=== PATIENT | female | born 1990 | race Caucasian/White ===

== ENCOUNTER → 2020-05-13 09:30 | Outpatient (BNVA) | payer BC, SELFPAY | PROVIDERS: Visit Provider Specialist | DX: G40.909 Epilepsy, unspecified, not intractable, without status epilepticus (principal); Z79.52 Long term (current) use of systemic steroids | CPT/HCPCS: 95816 ==

== ENCOUNTER → 2020-05-20 11:27 | Outpatient (BNVA) | payer BC, SELFPAY | PROVIDERS: PCP Family Medicine; Visit Provider Specialist | DX: R56.9 Unspecified convulsions (principal); F41.8 Other specified anxiety disorders; G43.711 Chronic migraine without aura, intractable, with status migrainosus; F17.210 Nicotine dependence, cigarettes, uncomplicated | CPT/HCPCS: 99204 ==